=== PATIENT | female | born 1955 | race African-American/Black ===

== ENCOUNTER 2024-05-28 04:12 | Day surgery (SDC) | payer OTHER, BC ==
[2024-05-20 16:35] VITALS: BMI 29.2
[2024-05-28 08:16] VITALS: RESP 18
[2024-05-28] MEDS: LIDOCAINE 1% P/F 10 MG/ML VIAL INF ONE ×2 (09:50)
[2024-05-28] MEDS ORDERED: ACETAMINOPHEN 500 MG TABLET (FP) PO PRN (10:55)
[2024-05-28 12:33] VITALS: BP 133/88; PULSE 67; TEMP 98.2
== END 2024-05-28 12:50 | disposition home or self-care (01) ==
LOC: JASU-SURG 04:12
PROVIDERS: ATTEND Pain Medicine Pain Medicine
PROC: 01HY3MZ Insertion of Neurostimulator Lead into Peripheral Nerve, Percutaneous Approach (ICD-10-PCS; principal; 2024-05-28 09:00)
DX: G89.4 Chronic pain syndrome (principal); M25.561 Pain in right knee
CPT/HCPCS: 64555; C1778

== ENCOUNTER 2024-06-19 04:42 | Day surgery (SDC) | payer BC, OTHER ==
[2024-06-17 15:02] VITALS: BMI 29.2
[2024-06-19 08:40] VITALS: RESP 18
[2024-06-19] MEDS: LIDOCAINE 1% P/F 10 MG/ML VIAL PNB ONE ×2 (10:08)
[2024-06-19 10:45] VITALS: TEMP 97.8
[2024-06-19 12:28] VITALS: BP 124/74; PULSE 66
== END 2024-06-19 12:15 | disposition home or self-care (01) ==
LOC: JASU-SURG 04:42
PROVIDERS: ATTEND Pain Medicine Pain Medicine
PROC: 01HY3MZ Insertion of Neurostimulator Lead into Peripheral Nerve, Percutaneous Approach (ICD-10-PCS; principal; 2024-06-19 09:00)
DX: G89.4 Chronic pain syndrome (principal); M25.561 Pain in right knee
CPT/HCPCS: 64555; C1778